=== PATIENT | male | born 1995 ===

== ENCOUNTER 2017-07-24 00:15 | Emergency (ER) | payer OTHER ==
[2017-07-24] MEDS ORDERED: MOTRIN PO ONE (09:24)
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
--- NOTE | 2017-07-24 10:24 | XRay Report ---
LEFT KNEE, 3 views: History: Left knee pain. The bony architecture is intact without evidence of fracture or dislocation. No significant soft tissue abnormality is seen. IMPRESSION: Normal left knee.
[2017-07-24 10:54] VITALS: BP 134/72
== END 2017-07-24 10:53 | disposition home or self-care (01) ==
LOC: ED 00:15
DX: S13.4XXA Sprain of ligaments of cervical spine, initial encounter (principal); S39.012A Strain of muscle, fascia and tendon of lower back, initial encounter; S86.912A Strain of unspecified muscle(s) and tendon(s) at lower leg level, left leg, initial encounter; V49.49XA Driver injured in collision with other motor vehicles in traffic accident, initial encounter; Y93.89 Activity, other specified; Y92.89 Other specified places as the place of occurrence of the external cause; Y99.8 Other external cause status